=== PATIENT | female | born 1960 | race Hispanic/Latino ===

== ENCOUNTER 2023-05-07 19:41 | Emergency (ER) | payer BC ==
[~2023-05-07] VITALS: Ht 157.5 cm; Wt 64.4 kg
[2023-05-07 20:23] VITALS: PULSE 81
[2023-05-08] MEDS: TETANUS/DIPHTHERIA TOXOID [ADULT] 0.5 ML VIAL IM ONE (00:40)
[2023-05-08] MEDS: DIPH,PERTUSS(ACELL),TET VAC/PF 0.5 ML VIAL IM ONE (00:42)
[2023-05-08 00:56] VITALS: BP 132/74; RESP 20
== END 2023-05-08 01:00 | disposition home or self-care (01) ==
LOC: EDH 19:41
DX: R21 Rash and other nonspecific skin eruption (principal); E11.9 Type 2 diabetes mellitus without complications; E78.00 Pure hypercholesterolemia, unspecified; I10 Essential (primary) hypertension
CPT/HCPCS: 90471; 90715